=== PATIENT | male | born 1975 | race Caucasian/White ===

== ENCOUNTER 2022-12-24 16:00 | Emergency (ER) | payer OTHER, MEDICAID ==
[~2022-12-24] VITALS: Ht 177.8 cm; Wt 99.8 kg
[2022-12-24 16:05] VITALS: BP_SYST 140; PULSE 122; RESP 20; TEMP 98.3; O2SAT 98
[2022-12-24] MEDS ORDERED: DIPHTH,PERTUSS(ACELL),TET VAC 0.5 ML VIAL (Tdap) I.M. ONE (16:30)
[2022-12-24] MEDS ORDERED: BACITRACIN 1 GM OINT TP ONE ×2 (16:30→16:38)
[2022-12-24] MEDS ORDERED: MORPHINE 4 MG INJ. 4 MG/ML VIAL IM ONE (16:30)
[2022-12-24] MEDS ORDERED: IBUP-1969 PO (17:00)
[2022-12-24] MEDS ORDERED: OXYC-128 PO (17:02)
== END 2022-12-24 17:16 | disposition home or self-care (01) ==
LOC: SED 16:00
DX: S40.812A Abrasion of left upper arm, initial encounter (principal); S80.812A Abrasion, left lower leg, initial encounter; Z79.899 Other long term (current) drug therapy; V89.0XXA Person injured in unspecified motor-vehicle accident, nontraffic, initial encounter; Y93.89 Activity, other specified; Y92.89 Other specified places as the place of occurrence of the external cause; Y99.8 Other external cause status
CPT/HCPCS: 99284; 90715; 96372; 90471; J2270